=== PATIENT | male | born 1980 ===

== ENCOUNTER 2025-07-23 10:10 | Emergency (ER) | payer SELFPAY ==
[2025-07-23] MEDS: Diphtheria,Pertussis(Acell),Tetanus Vaccine 0.5 ML Syringe IM ONE (10:32)
[2025-07-23] MEDS: Tetracaine HCl/PF 0.5% 4 ML Bottle EYEBOTH ONE (10:32)
== END 2025-07-23 10:55 | disposition home or self-care (01) ==
LOC: MW.ED 10:10
DX: T15.11XA Foreign body in conjunctival sac, right eye, initial encounter (principal); Z79.899 Other long term (current) drug therapy
CPT/HCPCS: 65205; 90471; 90715; 99283; A9270; J3490